=== PATIENT | male | born 1980 | race African-American/Black ===

== ENCOUNTER 2017-07-10 14:05 | Emergency (ER) | payer MEDICAID ==
[~2017-07-10] VITALS: Ht 175.3 cm; Wt 111.0 kg
[~2017-07-10 14:05] MED LIST: CALC-978 PO; CALC0.253 PO; CHOL400C8 PO; DILT180C69 PO; FLUT1DIS3 INH; FURO-151 PO; LOSA50TA3 PO; MULT-1146 PO; POTA20PA15 PO; SIMV20TA6 PO; VITA1CAP PO; [UNRECOGNIZED DRUG - CODE] PO
[2017-07-10] MEDS ORDERED: AZITHROMYCIN 500 MG TABLET PO STA (14:19)
[2017-07-10] MEDS ORDERED: PREDNISONE 20MG TABLET PO STA (14:19)
[2017-07-10] MEDS ORDERED: ALBUTEROL (0.083%) 2.5MG/3ML NEB HHN STA ×3 (14:19→17:27)
[2017-07-10] MEDS ORDERED: IPRATROPIUM BROMIDE (0.02%) 0.5MG/2.5ML NEB HHN STA ×3 (14:19→17:27)
[2017-07-10] MEDS ORDERED: ALBUTEROL (0.083%) 2.5MG/3ML NEB ONE ×3 (14:51→17:49)
[2017-07-10] MEDS ORDERED: MAGNESIUM 2 G PREMIX 50 ML IV STA (16:09)
[2017-07-10] MEDS ORDERED: IPRATROPIUM BROMIDE (0.02%) 0.5MG/2.5ML NEB ONE (17:48)
[2017-07-10 18:44] VITALS: BP 137/81
== END 2017-07-10 18:57 | disposition home or self-care (01) ==
LOC: ER 15:09
DX: J44.1 Chronic obstructive pulmonary disease with (acute) exacerbation (principal); F12.10 Cannabis abuse, uncomplicated; J45.909 Unspecified asthma, uncomplicated
CPT/HCPCS: 71010; 94640; 96365; 96366; 99285; J3475; J7512; J7611

== ENCOUNTER 2018-08-23 13:16 | Emergency (ER) | payer MEDICAID ==
[~2018-08-23] VITALS: Ht 177.8 cm; Wt 116.0 kg
[~2018-08-23 13:16] MED LIST changes: +DILT180C66 PO; -DILT180C69 PO; -LOSA50TA3 PO; -[UNRECOGNIZED DRUG - CODE] PO
[2018-08-23] MEDS ORDERED: METHYLPREDNISOLONE SOD SUCC 125 MG/2 ML VIAL IV STA (14:52)
[2018-08-23] MEDS ORDERED: MAGNESIUM 2 G PREMIX 50 ML IV STA (14:52)
[2018-08-23] MEDS ORDERED: IPRATROPIUM BROMIDE (0.02%) 0.5MG/2.5ML NEB HHN STA (14:52)
[2018-08-23] MEDS ORDERED: ALBUTEROL (0.083%) 2.5MG/3ML NEB HHN STA ×2 (14:52→17:32)
[2018-08-23 20:19] LABS: CHLORIDE 106 mEq/L (98-107)
[2018-08-23 20:22] LABS: HEMATOCRIT. 32.2 % (42.0-52.0); MEAN CORPUSCULAR HEMOGLOBIN 16.7 pg (28.0-32.0); MEAN CORPUSCULAR VOLUME 60.1 fL (80.0-94.0); MEAN PLATELET VOLUME 8.5 fl (7.4-10.4); PLATELET 300 x1000/uL (130-400); RED BLOOD CELL COUNT 5.36 mill/uL (4.7-6.1); RED CELL DISTRIBUTION WIDTH 19.8 % (11.6-14.6)
[2018-08-23] MEDS ORDERED: IBUPROFEN 600MG TABLET PO ONE (20:30)
[2018-08-23] MEDS: ALBUTEROL (0.083%) 2.5MG/3ML NEB HHN SCH ×3 (20:34→21:50)
[2018-08-23 20:58] LABS: PLATELET ESTIMATE NORMAL
[2018-08-23 21:10] VITALS: BP 135/78
== END 2018-08-23 21:35 | disposition home or self-care (01) ==
LOC: ER 13:58
DX: J45.901 Unspecified asthma with (acute) exacerbation (principal); Z88.5 Allergy status to narcotic agent
CPT/HCPCS: 36415; 71045; 80053; 84484; 85025; 93005; 94640; 96365; 96375; 99284; J2930; J3475; J7611